=== PATIENT | male | born 2000 | race Caucasian/White ===

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

== ENCOUNTER 2020-03-08 21:46 | Emergency (ER) | payer OTHER ==
[2020-03-08] MEDS ORDERED: MORPHINE SULFATE 4 MG INJ IV ONE ×2 (21:58→23:07)
[2020-03-08] MEDS ORDERED: MORPHINE SULFATE 4 MG INJ ONE ×2 (22:10→23:07)
[2020-03-08 23:12] VITALS: O2SAT 99
--- NOTE | 2020-03-08 23:18 | ERPHSYRPT ---
- History of Present Illness Time Seen by Provider: 03/08/20 22:00 Source: patient Exam Limitations: no limitations Patient Subjective Stated Complaint: pt c/o rt knee pain from surgery today, pt unable to get narcotics filled this evening. Triage Nursing Assessment: pt c/o rt knee pain from surgery today, pt unable to get narcotics filled this evening after going to [address] De LaP az suggested pt come to ER for pain control until rx can be filled tomorrow. Pt had ACL replacement and Meniscus repair. Physician History: Patient is a 19-year-old male who presents to our ED as a referral from his orthopedic surgeon for pain control. Patient had ACL meniscus repair performed today. Patient unable to get his postoperative pain medications. Patient states his pain control from surgery is now wearing off. Patient describes the pain is localized to his right knee. Pain described as an ache. Pain is constant. No trauma. No fever. No nausea or vomiting. No chest pain or shortness of breath. Symptoms are mild to moderate in intensity. Patient voices no other complaints or concerns at this time. Method of Injury: other (Pain.) Occurred: this afternoon Quality: constant Severity of Pain-Max: moderate Severity of Pain-Current: mild Lower Extremities Pain: knee: right Modifying Factors: Improves With: nothing Associated Symptoms: none Allergies/Adverse Reactions: No Known Drug Allergies Allergy (Verified 03/08/20 22:02) Home Medications: No Reportable Medications [No Reported Medications] 03/08/20 [History] Hx Tetanus, Diphtheria Vaccination/Date Given: Yes Hx Influenza Vaccination/Date Given: No Hx Pneumococcal Vaccination/Date Given: No Immunizations Up to Date: Yes Travel Risk - International Travel Have you traveled outside of the country in past 3 weeks: No - Coronavirus Screening Are you exhibiting any of the following symptoms?: No - Review of Systems Constitutional: No Symptoms, No Fever, No Chills Eyes: No Symptoms Ears, Nose, & Throat: No Symptoms Respiratory: No Symptoms, No Cough, No Dyspnea Cardiac: No Symptoms, No Chest Pain, No Edema, No Syncope Abdominal/Gastrointestinal: No Symptoms, No Abdominal Pain, No Nausea, No Vomiting, No Diarrhea Genitourinary Symptoms: No Symptoms, No Dysuria Musculoskeletal: No Symptoms, No Back Pain, No Neck Pain Skin: No Symptoms, No Rash Neurological: No Symptoms, No Dizziness, No Focal Weakness, No Sensory Changes Psychological: No Symptoms Endocrine: No Symptoms Hematologic/Lymphatic: No Symptoms Immunological/Allergic: No Symptoms All Other Systems: Reviewed and Negative - Past Medical History Pertinent Past Medical History: Yes Neurological History: No Pertinent History ENT History: No Pertinent History Cardiac History: No Pertinent History Respiratory History: No Pertinent History Endocrine Medical History: No Pertinent History Musculoskeletal History: Other GI Medical History: No Pertinent History History: No Pertinent History Psycho-Social History: No Pertinent History Other Medical History: ACL tear - Past Surgical History Past Surgical History: Yes Neuro Surgical History: No Pertinent History Cardiac: No Pertinent History Respiratory: No Pertinent History Gastrointestinal: No Pertinent History Genitourinary: No Pertinent History Musculoskeletal: Orthopedic Surgery Male Surgical History: No Pertinent History Other Surgical History: ACL replacement, meniscus repair - Social History Smoking Status: Current every day smoker How long have you smoked: 5 months Exposure to second hand smoke: Yes Drug Use: none Patient Lives Alone: No - Nursing Vital Signs Nursing Vital Signs: Initial Vital Signs Temperature 97.9 F 03/08/20 21:51 Pulse Rate 100 H 03/08/20 21:51 Respiratory Rate 18 03/08/20 21:51 Blood Pressure 149/72 03/08/20 21:51 O2 Sat by Pulse Oximetry 98 03/08/20 21:51 Pain Scale Pain Intensity [Right Knee] 8 Pain Intensity 8 - Physical Exam General Appearance: alert Eyes, Ears, Nose, Throat Exam: moist mucous membranes Neck Exam: non-tender, supple Cardiovascular/Respiratory Exam: chest non-tender, normal breath sounds, regular rate/rhythm, no respiratory distress Gastrointestinal/Abdominal Exam: non-tender, guarding Back Exam: normal inspection, No vertebral tenderness Hips Exam: bilateral: non-tender, normal inspection, normal range of motion, no evidence of injury Legs Exam: bilateral leg: non-tender, normal inspection, normal range of motion, no evidence of injury Knees Exam: right knee: pain (Right knee immobilized due to ACL and meniscal surgery today. Mobilizer intact. Extremities are neurovascular intact distally.), left knee: non-tender, normal inspection, normal range of motion, no evidence of injury Ankle Exam: bilateral ankle: non-tender, normal inspection, normal range of motion, no evidence of injury Foot Exam: bilateral foot: non-tender, normal inspection, normal range of motion, no evidence of injury Neuro/Tendon Exam: normal sensation, normal motor functions Mental Status Exam: alert, oriented x 3, cooperative Skin Exam: normal color, warm, dry SpO2 Interpretation: normal SpO2: 99 O2 Delivery: Room Air - Course Nursing assessment & vital signs reviewed: Yes Ordered Tests: Active Orders 24 hr Category Date Time Status IV Insertion STAT Care 03/08/20 21:58 Active Medication Summary Discontinued Medications Generic Name Dose Route Start Last Admin Trade Name Vita PRN Reason Stop Dose Admin Morphine Sulfate 4 mg 03/08/20 21:58 03/08/20 22:12 Morphine Sulfate 4 Mg Inj IV 03/08/20 21:59 4 mg STAT ONE Administration Morphine Sulfate Confirm 03/08/20 22:10 Morphine Sulfate 4 Mg Inj Administered 03/08/20 22:11 Dose 4 mg .ROUTE .STK-MED ONE Morphine Sulfate 4 mg 03/08/20 23:07 03/08/20 23:08 Morphine Sulfate 4 Mg Inj IV 03/08/20 23:08 4 mg STAT ONE Administration Morphine Sulfate Confirm 03/08/20 23:07 Morphine Sulfate 4 Mg Inj Administered 03/08/20 23:08 Dose 4 mg .ROUTE .STK-MED ONE - Progress Progress: improved Progress Note: 03/08/20 23:17 Patient reassessed. Pain improved. Repeat exam shows extremity neurovascular intact distally. There is limitations of dorsiflexion plantarflexion and movement of toes. However this is due to the block that was done in surgery. Patient advised that this will be the case for 16 to 24 hours from the time of surgery. Discharge home. Patient currently has a prescription awaiting him to be picked up in the morning. Patient agrees to follow-up with his orthopedic doctor within 48 hours for reevaluation. Counseled pt/family regarding: diagnosis, need for follow-up - Departure Departure Disposition: Home Clinical Impression: Post-operative pain Condition: Stable Critical Care Time: No Referrals: SHIN CLARKE MD [Primary Care Provider] - Additional Instructions: Discharge/Care Plan BERTO PENA was seen on 03/08/20 in the Emergency Room. The patient was counseled regarding Diagnosis,Lab results, Imaging studies, need for follow up and when to return to the Emergency Room. Prescriptions given: Discharge Note I have spoken with the patient and/or caregivers. I have explained the patient's condition, diagnosis and treatment plan based on the information available to me at this time. I have answered the patient's and/or caregiver's questions and addressed any concerns. The patient and/or caregivers have as good understanding of the patient's diagnosis, condition and treatment plan as can be expected at this point. The vital signs have been stable. The patient's condition is stable and appropriate for discharge from the emergency department. The patient will pursue further outpatient evaluation with the primary care physician or other designated or consulting physician as outlined in the zachary allen instructions. The patient and/or caregivers are agreeable to this plan of care and follow-up instructions have been explained in detail. The patient and/or caregivers have received these instruction. The patient/and or caregivers are aware that any significant change in condition or worsening of symptoms should prompt an immediate return to this or the closest emergency department or call 911.
[2020-03-08] MEDS ORDERED: NORCO 5/325 MG PO ONE (23:26)
[2020-03-08] MEDS ORDERED: NORCO 5/325 MG ONE (23:27)
[2020-03-08 23:33] VITALS: BP 150/69; PULSE 88
== END 2020-03-08 23:41 | disposition home or self-care (01) ==
LOC: ED 21:46
DX: T81.89XA Other complications of procedures, not elsewhere classified, initial encounter (principal); M25.561 Pain in right knee
CPT/HCPCS: 36000; 96374; 96376; 99284; J2270; A9270-GY

== ENCOUNTER 2022-12-02 21:32 | Emergency (ER) | payer OTHER ==
--- NOTE | 2022-12-02 21:47 | ERPHSYRPT ---
- History of Present Illness Time Seen by Provider: 12/02/22 21:46 Source: patient Exam Limitations: no limitations Physician History: This is a 22-year-old white male patient who has had several tick bites in the past. Approximately 2 to 3 days ago he removed a tick from the inner aspect of his left lower thigh. Since that time he has had increased redness. There is no abscess present but the redness was concerning to him. Patient denies chest pain. He has not had a fever. He has no shortness of breath. Timing/Duration: day(s) (2 to 3 days ago) Quality: painful Severity: mild Location: extremities (Left thigh lower inner aspect) Possible Causes: insect bite (Take bite per his report) Associated Symptoms: denies symptoms Allergies/Adverse Reactions: No Known Drug Allergies Allergy (Verified 12/02/22 22:05) Hx Tetanus, Diphtheria Vaccination/Date Given: Yes Hx Influenza Vaccination/Date Given: No Hx Pneumococcal Vaccination/Date Given: No Travel Risk - International Travel Have you traveled outside of the country in past 3 weeks: No - Coronavirus Screening Are you exhibiting any of the following symptoms?: No Close contact with a COVID-19 positive Pt in past 14-21 Days: No - Review of Systems Constitutional: No Symptoms Eyes: No Symptoms Ears, Nose, & Throat: No Symptoms Respiratory: No Symptoms Cardiac: No Symptoms Abdominal/Gastrointestinal: No Symptoms Genitourinary Symptoms: No Symptoms Musculoskeletal: No Symptoms Skin: Cellulitis (Left thigh lower and inner aspect) Neurological: No Symptoms Psychological: No Symptoms Endocrine: No Symptoms Hematologic/Lymphatic: No Symptoms Immunological/Allergic: No Symptoms All Other Systems: Reviewed and Negative - Past Medical History Pertinent Past Medical History: Yes Neurological History: No Pertinent History ENT History: No Pertinent History Cardiac History: No Pertinent History Respiratory History: No Pertinent History Endocrine Medical History: No Pertinent History Musculoskeletal History: Other GI Medical History: No Pertinent History History: No Pertinent History Psycho-Social History: No Pertinent History Other Medical History: KNEE INJURY NOTED ABOVE. - Past Surgical History Past Surgical History: Yes Neuro Surgical History: No Pertinent History Cardiac: No Pertinent History Respiratory: No Pertinent History Gastrointestinal: No Pertinent History Genitourinary: No Pertinent History Musculoskeletal: Orthopedic Surgery Male Surgical History: No Pertinent History Other Surgical History: ACL replacement, meniscus repair - Social History Smoking Status: Current every day smoker How long have you smoked: 5 months Exposure to second hand smoke: Yes Drug Use: none Patient Lives Alone: No - Nursing Vital Signs Nursing Vital Signs: Initial Vital Signs Temperature 98.5 F 12/02/22 21:55 Pulse Rate 90 12/02/22 21:55 Respiratory Rate 16 12/02/22 21:55 Blood Pressure 147/73 12/02/22 21:55 O2 Sat by Pulse Oximetry 97 12/02/22 21:55 Pain Scale Pain Intensity 1 - Physical Exam General Appearance: no apparent distress, alert, anxiety Eye Exam: PERRL/EOMI, eyes nml inspection Ears, Nose, Throat Exam: normal ENT inspection, moist mucous membranes Neck Exam: normal inspection, non-tender, supple, full range of motion Respiratory Exam: airway intact, No chest tenderness, No respiratory distress Gastrointestinal/Abdomen Exam: No tenderness Rectal Exam: not done Back Exam: normal inspection, normal range of motion, No CVA tenderness, No vertebral tenderness Extremity Exam: normal range of motion, pelvis stable, other (Cellulitis in a circular pattern without a target sign left thigh lower medial aspect. No abscess present. No proximal streaking.) Neurologic Exam: alert, oriented x 3, cooperative, information assistant II-XII nml as tested, normal mood/affect, nml cerebellar function, nml station & gait, sensation nml Skin Exam: other (Cellulitis. See above) Lymphatic Exam: No adenopathy SpO2 Interpretation: normal O2 Delivery: Room Air - Course Nursing assessment & vital signs reviewed: Yes - Progress Progress: unchanged Progress Note: 12/02/22 22:21 This patient's medical issue is 1 of low complexity. The level of complexity and the work-up performed was based on review of the patient's past medical history, review of the patient's medication list, review of the patient's drug allergy list, history of present illness and physical findings on examination. No radiographic studies or laboratory studies are necessary for this patient. Patient is certain that this was a tick. It does not appear to to be a target sign and I doubt Lyme's disease is present. However, there is cellulitis present and we should treat him with doxycycline. Counseled pt/family regarding: diagnosis, need for follow-up Medical Desision Making - Independent Historian Additional History obtained from: Spouse - Diagnostic Testing Diagnostic test were ordered, analyzed, and reviewed by me: No - Risk of complications The pt has a mod risk of morbidity or mortality based on: Need for prescription drug management - Departure Departure Disposition: Home Clinical Impression: Cellulitis of left thigh Condition: Stable Critical Care Time: No Referrals: SHIN CLARKE MD [Primary Care Provider] - Follow up/PCP as directed Additional Instructions: Keep the site clean daily with soap and water. Return to the emergency department if symptoms worsen. Take your antibiotics as prescribed. Use Tylenol and ibuprofen for pain control. Prescriptions: Doxycycline Hyclate 100 mg [Vibramycin 100 MG] 100 mg PO BID #14 tab
[2022-12-02] MEDS ORDERED: Vibramycin 100 MG PO ONE (22:18)
[2022-12-02] MEDS ORDERED: Vibramycin 100 MG ONE (22:19)
[2022-12-02 22:33] VITALS: BP 131/71; PULSE 84; O2SAT 96
== END 2022-12-02 22:31 | disposition home or self-care (01) ==
LOC: ED 21:32
DX: S70.362A Insect bite (nonvenomous), left thigh, initial encounter (principal); L03.116 Cellulitis of left lower limb; W57.XXXA Bitten or stung by nonvenomous insect and other nonvenomous arthropods, initial encounter; Z72.0 Tobacco use
CPT/HCPCS: 99281; A9270-GY

== ENCOUNTER 2024-06-07 14:30 | Emergency (ER) | payer OTHER ==
[2024-06-07 14:40] VITALS: RESP 16; TEMP 97.8
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
[2024-06-07] MEDS ORDERED: BACIGUENT PACKET ONE (15:27)
[2024-06-07 15:36] VITALS: BP 136/63; PULSE 82; O2SAT 99
--- NOTE | 2024-06-07 19:32 | XRAY ---
Indication: Crush injury. Comparison: None 3 view left 2nd finger demonstrate soft tissue swelling. No other bony, articular, or soft tissue abnormalities.
== END 2024-06-07 15:35 | disposition home or self-care (01) ==
LOC: ED 14:30
DX: S60.022A Contusion of left index finger without damage to nail, initial encounter (principal); W20.8XXA Other cause of strike by thrown, projected or falling object, initial encounter; Z72.0 Tobacco use
CPT/HCPCS: 73140; 99282; 99283; A9270-GY